=== PATIENT | female | born 1980 | race Caucasian/White ===

== ENCOUNTER 2018-10-20 11:26 | Emergency (ER) | payer SELFPAY ==
[2018-10-20 11:27] VITALS: BP 155/78; PULSE 139; RESP 16; TEMP 36.4; O2SAT 100; BMI 31.7
--- NOTE | 2018-10-20 12:07 | ED.DCSUM_ITS ---
- ER Visit Summary Date of Service: 10/20/18 Chief Complaint: Foreign body in right ear canal History of Present Illness: The patient is a 38 F who has a Q-tip in the right ear canal. She states is been there for a month. Her ear itches so she has been using Q-tips to itch it. She has put more Q-tips in the ear trying to get the first Q-tip out. She denies any bleeding or drainage. No fevers. Physical Examination: Vital signs reviewed. Right ear canal reveals a Q-tip in the canal pushed up against the tympanic membrane. There is no drainage or bleeding. The rest the exam is unremarkable Test Results: None performed none performed Emergency Department Course and Treatment: Patient had removal of foreign body with alligator forceps. It was removed in its entirety. The tympanic membrane is intact. The ear canal is mildly erythematous. I will treat her with Cortisporin otic. She will follow-up with her PCP Treatment Plan: [] Disposition: Discharge Impression: Foreign body, right ear canal Foreign body removal This note was generated with [employer] dictation software. It may contain incorrect words, spelling, and punctuation that were not noted in review of the chart prior to signing ED Disposition - Plan for ED Patient: Referrals: Care Physician,No Primary [Primary Care Provider] -
--- NOTE | 2018-10-20 12:08 | ED.DEP ---
ED Disposition - Plan for ED Patient: Disposition: Home or Assisted Living Instructions: FOREIGN BODY, Ear Canal (Removed) Prescriptions: Neomyc/Colist/Hydrocort/Thonzn [Cortisporin-Tc Ear Suspension] 10 ml OT TID #1 bot Prescription Printed Referrals: Care Physician,No Primary [Primary Care Provider] -
== END 2018-10-20 12:11 | disposition home or self-care (01) ==
PROVIDERS: Emergency Provider Emergency Medicine
DX: T16.1XXA Foreign body in right ear, initial encounter (principal); X58.XXXA Exposure to other specified factors, initial encounter; Y93.9 Activity, unspecified; Y92.9 Unspecified place or not applicable; Z72.0 Tobacco use
CPT/HCPCS: 99282